=== PATIENT | female | born 1995 | race Caucasian/White ===

== ENCOUNTER 2016-10-14 09:33 | Outpatient (CLI) | payer OTHER, BC | END 2016-10-14 09:34 | LOC: LAB 09:33 | PROVIDERS: ATTEND Physician Assistant | DX: Z32.01 Encounter for pregnancy test, result positive (principal); N92.6 Irregular menstruation, unspecified | CPT/HCPCS: 36415; 84702 ==

== ENCOUNTER 2017-09-12 13:56 | Emergency (ER) | payer OTHER, BC ==
--- NOTE | 2017-09-12 13:58 | ED Physician Documentation ---
General Adult - HISTORIAN Historian: patient - HPI Stated Complaint: States she is having an allergic reaction Chief Complaint: Allergic Reaction Onset: hours (1) Timing: still present Severity: moderate Further Comments: yes (She states at around 1 pm she took Augmentin and she noticed redness and itching of her neck which is now on her chest and legs. She denies shortness of breath. She has had Augmentin in the past. She has not tried any OTC antihistamines) Last known Well Code/Unknown Code: Unknown - ROS CONST: recent illness. denies: fever EYES/ENT: denies: sore throat GI/: denies: abdominal pain MS/SKIN/LYMPH: rash NEURO/PSYCH: denies: headache, dizziness - PAST HX Past History: none Other History: none Surgeries/Procedures: none Immunizations: referred to PCP Allergies/Adverse Reactions: Allergies Allergy/AdvReac Type Severity Reaction Status Date / Time amoxicillin trihydrate Allergy Verified 09/12/17 14:28 [From Augmentin] potassium clavulanate Allergy Verified 09/12/17 14:28 [From Augmentin] Sulfa (Sulfonamide Allergy "heart Verified 06/26/15 14:17 Antibiotics) races " Home Medications: Ambulatory Orders Medication Instructions Recorded Sertraline HCl 50 mg PO DAILY u2 06/26/15 Azithromycin [Zithromax] 250 mg PO DAILY #6 tablet 09/12/17 Loratadine [Claritin] 10 mg PO D #10 tablet 09/12/17 Methylprednisolone [Medrol] 4 mg PO D #1 tab.ds.pk 09/12/17 Norgestimate-Ethinyl Estradiol 84 Days #84 09/12/17 [Sprintec 28 Day Tablet] Ranitidine HCl 150 mg PO BID #20 tablet 09/12/17 - SOCIAL HX Smoking History: non-smoker Alcohol Use: none Drug Use: none - FAMILY HX Family History: No - REVIEWED ASSESSMENTS Nursing Assessment Reviewed: Yes Vitals Reviewed: Yes Progress - Progress Progress: rash is improving She denies any further symptoms No shortness of air Meds discussed Start Azithromycin start tomorrow (as directed on zpack order) Start Claritin and Zantac as ordered Medrol Dose pack start tomorrow Benadryl as needed per OTC directions Return if any changes or increase in symptoms -- rash or shortness of breath General Adult Physical Exam - PHYSICAL EXAM GENERAL APPEARANCE: mild distress EENT: eye inspection normal NECK: normal inspection RESPIRATORY: no resp distress, chest non-tender, breath sounds normal CVS: reg rate & rhythm, heart sounds normal, equal pulses, no murmur ABDOMEN: soft, no organomegaly, normal bowel sounds SKIN: other (red raised rash on neck. Redness on bilateral arms and legs ) EXTREMITIES: non-tender, normal range of motion NEURO: oriented X3, CN's nml as tested, motor nml Discharge Clincal Impression: Allergic Qualifiers: Encounter type: initial encounter Qualified Code(s): T78.40XA - Allergy, unspecified, initial encounter Prescriptions: Azithromycin [Zithromax] 250 mg PO DAILY #6 tablet Loratadine [Claritin] 10 mg PO D #10 tablet Methylprednisolone [Medrol] 4 mg PO D #1 tab.ds.pk Ranitidine HCl 150 mg PO BID #20 tablet Referrals: Wandy Wong PA [Primary Care Provider] - 2 Days Condition: Stable Disposition: 01 HOME, SELF-CARE Decision to Admit: NO Date of Decison to Admit: 09/12/17 Decision Time: 15:07
[2017-09-12] MEDS: 0.9 % SODIUM CHLORIDE 1,000 ML IV ONE (14:00)
[2017-09-12] MEDS: diphenhydrAMINE HCL 50 MG/ML VIAL IVP ONE (14:02)
[2017-09-12] MEDS: FAMOTIDINE/PF 20 MG/2 ML VIAL IVP ONE (14:04)
[2017-09-12 14:25] LABS: BASOPHILS % 0.3 (0.0-1.5); EOSINOPHILS % 0.9 % (0.0-6.8); MEAN CORPUSCULAR HEMOGLOBIN 28.8 pg (28.0-34.0); MEAN CORPUSCULAR VOLUME 88.4 fl (80.0-100.0); MONOCYTES % 3.7 % (0.0-11.0); NEUTROPHILS # 6.2 # k/uL (1.4-7.7)
[2017-09-12 14:36] LABS: eGFR (African) > 60; eGFR (Non-African) > 60
[2017-09-12] MEDS: methylPREDNISolone SOD SUCC 125 MG/2 ML VIAL ONE (15:27)
[2017-09-12 15:28] VITALS: BP 90/45
== END 2017-09-12 15:26 | disposition home or self-care (01) ==
LOC: ED 13:56 → SUPCPDRO 13:56 → ED 15:26
DX: T78.40XA Allergy, unspecified, initial encounter (principal); X58.XXXA Exposure to other specified factors, initial encounter; Y93.9 Activity, unspecified; Y99.9 Unspecified external cause status
CPT/HCPCS: 80053; 85025; J1200; J2930; J7030; 96361; 96374; 96375; 99283; S0028; S1016

== ENCOUNTER 2017-10-30 15:46 | Outpatient (CLI) | payer BC | END 2017-10-30 15:47 | LOC: LAB 15:46 | PROVIDERS: ATTEND Family Medicine | DX: R63.5 Abnormal weight gain (principal) | CPT/HCPCS: 36415; 84439; 84443 ==

== ENCOUNTER 2018-01-06 16:25 | Outpatient (CLI) | payer BC | END 2018-01-06 16:26 | LOC: LABRHC 16:25 | PROVIDERS: ATTEND Physician Assistant | DX: R32 Unspecified urinary incontinence (principal) | CPT/HCPCS: 87086 ==

== ENCOUNTER 2018-10-21 16:29 | Outpatient (CLI) | payer BC | END 2018-10-21 16:32 | LOC: LAB 16:29 | PROVIDERS: ATTEND Nurse Practitioner Family | DX: E66.09 Other obesity due to excess calories (principal); E07.9 Disorder of thyroid, unspecified | CPT/HCPCS: 36415; 84439; 84443; 84481 ==